=== PATIENT | female | born 2005 | race Caucasian/White ===

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

== ENCOUNTER 2023-10-16 20:47 | Emergency (ER) | payer SELFPAY ==
[2023-10-16 22:02] LABS: BASOPHILS ABSOLUTE AUTO 0.1 K/mm3 (0.0-0.2); BASOPHILS PERCENT AUTO 1.1 % (0.0-1.0); EOSINOPHILS PERCENT AUTO 0.2 % (0.0-6.0); HEMATOCRIT 40.8 % (37.0-47.0); IMMATURE GRAN ABSOLUTE AUTO 0.01 K/mm3 (0.00-0.05); IMMATURE GRAN PERCENT AUTO 0.2 % (0.0-0.4); LYMPHOCYTES ABSOLUTE AUTO 2.9 K/mm3 (1.0-4.8); LYMPHOCYTES PERCENT AUTO 45.9 % (24.0-44.0); MEAN CORPUSCULAR HEMOGLOBIN 25.9 pg (28.0-32.0); MEAN CORPUSCULAR HGB CONC 31.9 g/dl (32.0-36.0); MEAN CORPUSCULAR VOLUME 81.3 fl (83.0-99.0); MEAN PLATELET VOLUME 9.5 fl (9.4-12.3); MONOCYTES ABSOLUTE AUTO 0.4 K/mm3 (0.0-0.8); MONOCYTES PERCENT AUTO 6.5 % (0.0-8.0); NEUTROPHILS ABSOLUTE AUTO 2.9 K/mm3 (1.8-7.7); NEUTROPHILS PERCENT AUTO 46.1 % (41.0-71.0); PLATELET COUNT,PLT 241 K/mm3 (150-400); RED BLOOD CELL COUNT 5.02 M/mm3 (4.10-5.30); WHITE BLOOD CELL COUNT,WBC 6.32 K/mm3 (3.9-11.3)
[2023-10-16 22:09] LABS: A/G RATIO 0.9 (1-2); ALANINE AMINOTRANSFERASE,ALT 59 U/L (14-59); ALBUMIN 3.9 g/dl (3.4-5.0); ALKALINE PHOSPHATASE 105 U/L (46-116); ASPARTATE AMNIOTRANSFERASE,AST 47 U/L (15-37); BILIRUBIN TOTAL 0.5 mg/dL (0.2-1.0); BLOOD UREA NITROGEN,BUN 8 mg/dL (7-18); CALCIUM 9.2 mg/dL (8.5-10.1); CARBON DIOXIDE,CO2 27 mEq/L (21-32); CHLORIDE,CL 105 mEq/L (98-107); ESTIMATED GFR 83 mL/min (>60); GLUCOSE RANDOM 93 mg/dL (70-99); PROTEIN TOTAL,TP 8.1 g/dl (6.4-8.2); SODIUM,NA 141 mEq/L (136-145); TSH 0.806 uIU/mL (0.516-4.13)
[2023-10-16 22:19] LABS: ACETAMINOPHEN 0 ug/mL (10-30)
[2023-10-16] MEDS: Diphtheria,Pertussis(Acell),Tetanus Vaccine 0.5 ML Syringe IM ONE (22:57)
[2023-10-16 23:02] LABS: AMPHETAMINES SCREEN, URINE NEGATIVE (CUTOFF=500); BARBITURATE SCREEN,URINE NEGATIVE (CUTOFF=200); METHAMPHETAMINES SCREEN, URINE NEGATIVE (CUTOFF=500)
[2023-10-16 23:03] LABS: BENZODIAZEPINES SCREEN,URINE NEGATIVE (CUTOFF=150); METHADONE SCREEN, URINE NEGATIVE (CUTOFF=200); OXYCODONE SCREEN,URINE NEGATIVE (CUT0FF=100); THC SCREEN,URINE 20 NG/ML PRESUMPTIVE POSITIVE (CUTOFF=50)
[2023-10-16 23:04] LABS: BUPRENORPHINE SCREEN,URINE NEGATIVE (CUTOFF=10)
[2023-10-16 23:21] LABS: SLIDE REVIEW ABNORMAL SMEAR
[2023-10-16 23:27] LABS: CORONAVIRUS COVID-19 NAA NEGATIVE (NEGATIVE); INFLUENZA A NAA NEGATIVE (NEGATIVE); RESPIRATORY SYNCYTIAL VIR NAA NEGATIVE (NEGATIVE)
== END 2023-10-17 05:11 ==
LOC: JD.ED 20:47
DX: S41.111A Laceration without foreign body of right upper arm, initial encounter (principal); S41.112A Laceration without foreign body of left upper arm, initial encounter; S81.812A Laceration without foreign body, left lower leg, initial encounter; S81.811A Laceration without foreign body, right lower leg, initial encounter; F12.90 Cannabis use, unspecified, uncomplicated; F17.290 Nicotine dependence, other tobacco product, uncomplicated; T14.91XA Suicide attempt, initial encounter; Z86.16 Personal history of COVID-19; Z88.1 Allergy status to other antibiotic agents; Z23 Encounter for immunization; Z88.2 Allergy status to sulfonamides; X78.9XXA Intentional self-harm by unspecified sharp object, initial encounter
CPT/HCPCS: 0241U; 36415; 80053; 80143; 80179; 80306; 80307; 84443; 84703; 85025; 90471; 90715; 99285